=== PATIENT | male | born 1950 | race Asian ===

== ENCOUNTER 2021-09-29 18:08 | Inpatient (IN) | payer OTHER, MEDICAID ==
[~2021-09-29] VITALS: Ht 170.2 cm; Wt 64.5 kg
[2021-09-29 19:43] LABS: Albumin 2.4 g/dL (3.4-5.0); Calcium 8.5 mg/dL (8.5-10.1); Potassium 3.5 mmol/L (3.5-5.1)
[2021-09-29 19:45] LABS: BUN/Creatinine Ratio 15.7
[2021-09-29 19:51] LABS: Hematocrit 38.3 % (41.0-53.0); Hemoglobin 12.4 g/dL (13.5-17.5); Mean Corpuscular Hemoglobin 28.9 pg (28.0-32.0); Mean Corpuscular Hgb Conc. 32.3 g/dL (32.0-36.0); Mean Corpuscular Volume 89.3 fL (80.0-100.0); Red Blood Cells 4.29 10^6/uL (4.5-5.90); Red Cell Distribution Width 14.4 % (11.8-14.3); White Blood Cell 3.4 10^3/uL (4.4-10.8)
[2021-09-29 19:52] LABS: Bilirubin, Total 0.9 mg/dL (0.2-1.0); Total Protein 6.9 g/dL (6.4-8.2)
[2021-09-29 20:06] LABS: Basophils % (manual) 0 (0.0-2.0); Blast Cells 0; Eosinophils % (manual) 0 (0-7); Metamyelocytes % 0; Monocytes % (manual) 0 (0-12); Myelocytes % 0; Promyelocytes % 0
[2021-09-29 20:20] LABS: Band Neutrophils % (manual) 3; Lymphocytes % (manual) 10 (10.0-50.0)
[2021-09-29 20:21] LABS: Reactive Lymphocytes 4
[2021-09-29] MEDS ORDERED: SODIUM CHLORIDE 0.9% 1,000 ML IV ONE (23:00)
[2021-09-29 23:14] LABS: Urine Bacteria FEW /hpf (None Seen); Urine Blood TRACE /uL (Negative); Urine Hyaline Cast MOD /lpf (0 - 2); Urine Mucus FEW (None Seen); Urine Specific Gravity 1.021 (1.001-1.035); Urine WBC 4 /hpf (0 - 3)
[2021-09-30] VITALS (8 sets, daily range): BP systolic 111–139; BP diastolic 71–87
[2021-09-30] MEDS ORDERED: ACETAMINOPHEN 325 MG TAB PO PRN (03:45)
[2021-09-30] MEDS ORDERED: DOCUSATE SOD 100 MG CAP PO PRN (03:45)
[2021-09-30] MEDS ORDERED: HYDROcodone-ACET 5/325MG TAB PO PRN (03:45)
[2021-09-30] MEDS ORDERED: NITROGLYCERIN 0.4 MG SL TAB SL PRN (04:15)
[2021-09-30] MEDS ORDERED: MORPHINE SULFATE INJ 2 MG/ml SYRG IV PRN (04:15)
[2021-09-30] MEDS: SODIUM CHLOR 0.9% PF (SALINE LOCK) 10ML VIAL/SYR IV SCH ×3 (06:02→21:40)
[2021-09-30] MEDS: ONDANSETRON HCL 4 MG/2 ML VIAL IV PRN (09:01)
[2021-09-30] MEDS: MORPHINE SULFATE INJ 2 MG/ml SYRG IV PRN ×2 (09:03→22:54)
[2021-09-30 09:13] LABS: Mean Corpuscular Hgb Conc. 33.2 g/dL (32.0-36.0); White Blood Cell 2.8 10^3/uL (4.4-10.8)
[2021-09-30 09:15] LABS: Hematocrit 33.7 % (41.0-53.0); Hemoglobin 11.2 g/dL (13.5-17.5); Mean Corpuscular Hemoglobin 29.5 pg (28.0-32.0); Mean Corpuscular Volume 88.9 fL (80.0-100.0); Red Blood Cells 3.79 10^6/uL (4.5-5.90); Red Cell Distribution Width 14.2 % (11.8-14.3)
[2021-09-30 09:29] LABS: Albumin 1.7 g/dL (3.4-5.0); Potassium 3.6 mmol/L (3.5-5.1)
[2021-09-30 09:33] LABS: BUN/Creatinine Ratio 20.9; Bilirubin, Total 0.9 mg/dL (0.2-1.0); Total Protein 5.5 g/dL (6.4-8.2)
[2021-09-30 09:38] LABS: Band Neutrophils % (manual) 0; Basophils % (manual) 0 (0.0-2.0); Blast Cells 0; Metamyelocytes % 0; Myelocytes % 0; Promyelocytes % 0; Reactive Lymphocytes 0
[2021-09-30] MEDS: ZINC SULFATE 220mg CAP or TAB PO SCH (10:00)
[2021-09-30] MEDS: MULTIPLE VITAMIN TAB PO SCH (10:00)
[2021-09-30] MEDS: ASCORBIC ACID 500 MG TAB PO SCH ×2 (10:00→21:40)
[2021-09-30 11:30] LABS: Eosinophils % (manual) 2 (0-7); Lymphocytes % (manual) 12 (10.0-50.0); Monocytes % (manual) 13 (0-12)
[2021-09-30] MEDS: FAMOTIDINE (10MG/ML) 2ML VL IV SCH (13:20)
[2021-09-30] MEDS: methylPREDNISolone SOD SUCC 125 MG/2 ML VL IV SCH ×2 (13:21→21:40)
[2021-09-30] MEDS ORDERED: OYST500T48 OR (23:36)
[2021-09-30] MEDS ORDERED: DICY20TA PO (23:36)
[2021-09-30] MEDS ORDERED: FINA5TAB4 PO (23:36)
[2021-09-30] MEDS ORDERED: ACYC1CAP23 PO (23:36)
[2021-09-30] MEDS ORDERED: DOCU100T15 PO (23:36)
[2021-09-30] MEDS ORDERED: CHOL20TA PO (23:36)
[2021-09-30] MEDS ORDERED: SIME1CAP7 PO (23:36)
[2021-09-30] MEDS ORDERED: ONDA-144 PO (23:36)
[2021-09-30] MEDS ORDERED: IBAN1TAB3 PO (23:36)
[2021-10-01] VITALS (8 sets, daily range): BP systolic 102–126; BP diastolic 68–82
[2021-10-01] MEDS: methylPREDNISolone SOD SUCC 125 MG/2 ML VL IV SCH ×3 (05:26→21:33)
[2021-10-01] MEDS: SODIUM CHLOR 0.9% PF (SALINE LOCK) 10ML VIAL/SYR IV SCH ×3 (05:26→21:34)
[2021-10-01 08:41] LABS: Basophils # (auto) 0 10 ^3/uL (0-0.2); Eosinophils # (auto) 0 10 ^3/uL (0-0.8); Lymphocytes # (auto) 0.3 10 ^3/uL (0.4-5.4); Monocytes # (auto) 0.2 10 ^3/uL (0-1.3); White Blood Cell 3.5 10^3/uL (4.4-10.8)
[2021-10-01 08:43] LABS: Basophils % (auto) 0.2 % (0.0-2.0); Hemoglobin 12.2 g/dL (13.5-17.5); Lymphocytes % (auto) 7.9 % (10.0-50.0); Mean Corpuscular Hemoglobin 29.4 pg (28.0-32.0); Mean Corpuscular Volume 88.9 fL (80.0-100.0); Monocytes % (auto) 4.5 % (0.0-12.0); Neutrophils % (auto) 87.4 % (37.0-80.0); Nucleated Red Blood Cells % 0.2 %; Red Blood Cells 4.16 10^6/uL (4.5-5.90); Red Cell Distribution Width 13.9 % (11.8-14.3)
[2021-10-01 08:53] LABS: Calcium 8.5 mg/dL (8.5-10.1); Potassium 3.9 mmol/L (3.5-5.1)
[2021-10-01 09:06] LABS: BUN/Creatinine Ratio 25.5; Bilirubin, Total 0.8 mg/dL (0.2-1.0); Total Protein 6.4 g/dL (6.4-8.2)
[2021-10-01] MEDS: ZINC SULFATE 220mg CAP or TAB PO SCH (10:25)
[2021-10-01] MEDS: MULTIPLE VITAMIN TAB PO SCH (10:25)
[2021-10-01] MEDS: FAMOTIDINE (10MG/ML) 2ML VL IV SCH (10:25)
[2021-10-01] MEDS: ASCORBIC ACID 500 MG TAB PO SCH ×2 (10:25→21:33)
[2021-10-02 05:00] VITALS: BP 120/80
[2021-10-02] MEDS: methylPREDNISolone SOD SUCC 125 MG/2 ML VL IV SCH ×3 (05:45→21:48)
[2021-10-02] MEDS: SODIUM CHLOR 0.9% PF (SALINE LOCK) 10ML VIAL/SYR IV SCH ×3 (05:45→21:47)
[2021-10-02 07:00] LABS: Basophils # (auto) 0 10 ^3/uL (0-0.2); Eosinophils # (auto) 0 10 ^3/uL (0-0.8); Hemoglobin 12.1 g/dL (13.5-17.5); Monocytes # (auto) 0.2 10 ^3/uL (0-1.3); Neutrophils # (auto) 4.5 10 ^3/uL (1.6-8.6); Nucleated Red Blood Cells % 0.1 %; White Blood Cell 5.1 10^3/uL (4.4-10.8)
[2021-10-02 07:03] LABS: Basophils % (auto) 0.2 % (0.0-2.0); Hematocrit 35.6 % (41.0-53.0); Lymphocytes # (auto) 0.4 10 ^3/uL (0.4-5.4); Lymphocytes % (auto) 7.2 % (10.0-50.0); Mean Corpuscular Hemoglobin 29.8 pg (28.0-32.0); Mean Corpuscular Hgb Conc. 33.8 g/dL (32.0-36.0); Mean Corpuscular Volume 88.3 fL (80.0-100.0); Monocytes % (auto) 3.7 % (0.0-12.0); Neutrophils % (auto) 88.9 % (37.0-80.0); Red Blood Cells 4.04 10^6/uL (4.5-5.90); Red Cell Distribution Width 14.7 % (11.8-14.3)
[2021-10-02 09:00] VITALS: BP 111/77
[2021-10-02] MEDS: MULTIPLE VITAMIN TAB PO SCH (09:34)
[2021-10-02] MEDS: ASCORBIC ACID 500 MG TAB PO SCH ×2 (09:34→21:48)
[2021-10-02] MEDS: FAMOTIDINE (10MG/ML) 2ML VL IV SCH (09:34)
[2021-10-02] MEDS: ZINC SULFATE 220mg CAP or TAB PO SCH (09:34)
[2021-10-02] MEDS ORDERED: GASTROGRAFIN 120 ML SOL ONE (09:37)
[2021-10-02 13:00] VITALS: BP 106/71
[2021-10-02 17:00] VITALS: BP 108/68
[2021-10-02 22:00] VITALS: BP 100/62
[2021-10-03 05:00] VITALS: BP 113/82
[2021-10-03] MEDS: SODIUM CHLOR 0.9% PF (SALINE LOCK) 10ML VIAL/SYR IV SCH ×3 (05:24→21:21)
[2021-10-03] MEDS: methylPREDNISolone SOD SUCC 125 MG/2 ML VL IV SCH ×3 (05:25→21:22)
[2021-10-03 06:20] LABS: Basophils # (auto) 0 10 ^3/uL (0-0.2); Basophils % (auto) 0.1 % (0.0-2.0); Eosinophils # (auto) 0 10 ^3/uL (0-0.8); Lymphocytes # (auto) 0.2 10 ^3/uL (0.4-5.4); Mean Corpuscular Volume 86.9 fL (80.0-100.0); Monocytes # (auto) 0.2 10 ^3/uL (0-1.3); White Blood Cell 4.2 10^3/uL (4.4-10.8)
[2021-10-03 06:22] LABS: Hemoglobin 10.7 g/dL (13.5-17.5); Mean Corpuscular Hemoglobin 29.1 pg (28.0-32.0); Mean Corpuscular Hgb Conc. 33.4 g/dL (32.0-36.0); Monocytes % (auto) 5.3 % (0.0-12.0); Neutrophils # (auto) 3.7 10 ^3/uL (1.6-8.6); Neutrophils % (auto) 89.6 % (37.0-80.0); Nucleated Red Blood Cells % 0.1 %; Red Blood Cells 3.68 10^6/uL (4.5-5.90); Red Cell Distribution Width 14.2 % (11.8-14.3)
[2021-10-03 06:31] LABS: BUN/Creatinine Ratio 43.2; Calcium 7.9 mg/dL (8.5-10.1); Potassium 3.9 mmol/L (3.5-5.1)
[2021-10-03 08:00] VITALS: BP 103/74
[2021-10-03] MEDS: FAMOTIDINE (10MG/ML) 2ML VL IV SCH (10:01)
[2021-10-03] MEDS: ZINC SULFATE 220mg CAP or TAB PO SCH (10:02)
[2021-10-03] MEDS: MULTIPLE VITAMIN TAB PO SCH (10:02)
[2021-10-03] MEDS: ASCORBIC ACID 500 MG TAB PO SCH ×2 (10:02→22:00)
[2021-10-03] MEDS ORDERED: PRED20TA2 PO (11:26)
[2021-10-03 12:00] VITALS: BP 103/68
[2021-10-03 16:00] VITALS: BP 114/70
[2021-10-03] MEDS: SODIUM CHLORIDE 0.9% 1,000 ML IV SCH (16:49)
[2021-10-03 22:00] VITALS: BP 122/76
[2021-10-04] MEDS: SODIUM CHLORIDE 0.9% 1,000 ML IV SCH ×3 (01:30→21:22)
[2021-10-04 05:00] VITALS: BP_SYST 124; BP_SYST 14; BP_DIAS 70
[2021-10-04] MEDS: SODIUM CHLOR 0.9% PF (SALINE LOCK) 10ML VIAL/SYR IV SCH ×3 (05:34→21:22)
[2021-10-04] MEDS: methylPREDNISolone SOD SUCC 125 MG/2 ML VL IV SCH ×2 (05:34→14:51)
[2021-10-04 06:02] LABS: Basophils # (auto) 0 10 ^3/uL (0-0.2); Eosinophils # (auto) 0 10 ^3/uL (0-0.8); Hemoglobin 11.5 g/dL (13.5-17.5); Lymphocytes # (auto) 0.2 10 ^3/uL (0.4-5.4); Monocytes # (auto) 0.1 10 ^3/uL (0-1.3); Nucleated Red Blood Cells % 0.1 %; Red Cell Distribution Width 14.5 % (11.8-14.3); White Blood Cell 4.2 10^3/uL (4.4-10.8)
[2021-10-04 06:07] LABS: Basophils % (auto) 0.3 % (0.0-2.0); Hematocrit 34.8 % (41.0-53.0); Lymphocytes % (auto) 5.4 % (10.0-50.0); Mean Corpuscular Hemoglobin 28.9 pg (28.0-32.0); Mean Corpuscular Volume 87.7 fL (80.0-100.0); Monocytes % (auto) 3.4 % (0.0-12.0); Neutrophils # (auto) 3.8 10 ^3/uL (1.6-8.6); Neutrophils % (auto) 90.9 % (37.0-80.0); Red Blood Cells 3.97 10^6/uL (4.5-5.90)
[2021-10-04 06:08] LABS: Potassium 4.2 mmol/L (3.5-5.1)
[2021-10-04 09:00] VITALS: BP 118/73
[2021-10-04 11:07] LABS: INR 1.32 (0.9-1.15); Partial Thromboplastin Time 28.1 sec (24.6-33.4)
[2021-10-04] MEDS: MULTIPLE VITAMIN TAB PO SCH (11:12)
[2021-10-04] MEDS: ASCORBIC ACID 500 MG TAB PO SCH (11:13)
[2021-10-04] MEDS: ZINC SULFATE 220mg CAP or TAB PO SCH (11:13)
[2021-10-04] MEDS: FAMOTIDINE (10MG/ML) 2ML VL IV SCH (12:30)
[2021-10-04 13:00] VITALS: BP 108/71
[2021-10-04] MEDS ORDERED: cefTRIAXone 1GM/50ML D5W 50 ML IV ONE (13:30)
[2021-10-04 17:00] VITALS: BP 190/97
[2021-10-04 22:00] VITALS: BP 108/73
[2021-10-05] VITALS (10 sets, daily range): BP systolic 120–137; BP diastolic 72–89
[2021-10-05] MEDS: SODIUM CHLORIDE 0.9% 1,000 ML IV SCH ×3 (02:52→22:50)
[2021-10-05 05:23] LABS: Basophils # (auto) 0 10 ^3/uL (0-0.2); Eosinophils # (auto) 0 10 ^3/uL (0-0.8); Lymphocytes # (auto) 0.1 10 ^3/uL (0.4-5.4)
[2021-10-05] MEDS: SODIUM CHLOR 0.9% PF (SALINE LOCK) 10ML VIAL/SYR IV SCH ×3 (05:25→22:50)
[2021-10-05 05:27] LABS: Basophils % (auto) 0.6 % (0.0-2.0); Hematocrit 32.4 % (41.0-53.0); Hemoglobin 10.6 g/dL (13.5-17.5); Lymphocytes % (auto) 3.1 % (10.0-50.0); Mean Corpuscular Hemoglobin 28.9 pg (28.0-32.0); Mean Corpuscular Hgb Conc. 32.8 g/dL (32.0-36.0); Mean Corpuscular Volume 87.9 fL (80.0-100.0); Monocytes # (auto) 0.2 10 ^3/uL (0-1.3); Monocytes % (auto) 5.1 % (0.0-12.0); Neutrophils # (auto) 3.9 10 ^3/uL (1.6-8.6); Neutrophils % (auto) 91.2 % (37.0-80.0); Nucleated Red Blood Cells % 0.2 %; Red Blood Cells 3.68 10^6/uL (4.5-5.90); Red Cell Distribution Width 14.8 % (11.8-14.3); White Blood Cell 4.3 10^3/uL (4.4-10.8)
[2021-10-05 05:44] LABS: Calcium 7.9 mg/dL (8.5-10.1); Potassium 3.9 mmol/L (3.5-5.1)
[2021-10-05 06:05] LABS: BUN/Creatinine Ratio 47.8
[2021-10-05] MEDS ORDERED: LORazepam 2MG/ML-1ML VIAL IV PRN (09:30)
[2021-10-05] MEDS: MULTIPLE VITAMIN TAB PO SCH (10:00)
[2021-10-05] MEDS ORDERED: methylPREDNISolone SOD SUCC 125 MG/2 ML VL IV SCH (10:00)
[2021-10-05] MEDS: FAMOTIDINE (10MG/ML) 2ML VL IV SCH (10:46)
[2021-10-05] MEDS: cefTRIAXone 1GM/50ML D5W 50 ML IV SCH (10:47)
[2021-10-05] MEDS: methylPREDNISolone SOD SUCC 125 MG/2 ML VL IV SCH ×3 (11:20→22:50)
[2021-10-05 20:57] LABS: Cholesterol 67 mg/dL (< 200)
[2021-10-05 21:00] LABS: HDL Cholesterol 10 mg/dL (40-59); LDL Cholesterol 42 mg/dL (< 100); Triglycerides 110 mg/dL (< 150)
[2021-10-05] MEDS: ATORVASTATIN 20 MG TAB PO SCH (22:53)
[2021-10-06 05:00] VITALS: BP 145/73
[2021-10-06] MEDS: SODIUM CHLOR 0.9% PF (SALINE LOCK) 10ML VIAL/SYR IV SCH ×3 (05:40→23:08)
[2021-10-06] MEDS: methylPREDNISolone SOD SUCC 125 MG/2 ML VL IV SCH ×3 (05:40→23:09)
[2021-10-06 05:41] LABS: Basophils # (auto) 0 10 ^3/uL (0-0.2); Eosinophils # (auto) 0 10 ^3/uL (0-0.8); Hemoglobin 9.4 g/dL (13.5-17.5); Lymphocytes # (auto) 0.1 10 ^3/uL (0.4-5.4)
[2021-10-06 05:47] LABS: Basophils % (auto) 0.4 % (0.0-2.0); Hematocrit 27.6 % (41.0-53.0); Lymphocytes % (auto) 3.2 % (10.0-50.0); Mean Corpuscular Hemoglobin 29.6 pg (28.0-32.0); Mean Corpuscular Hgb Conc. 33.9 g/dL (32.0-36.0); Mean Corpuscular Volume 87.2 fL (80.0-100.0); Monocytes # (auto) 0.2 10 ^3/uL (0-1.3); Monocytes % (auto) 4.3 % (0.0-12.0); Neutrophils # (auto) 3.9 10 ^3/uL (1.6-8.6); Neutrophils % (auto) 92.1 % (37.0-80.0); Nucleated Red Blood Cells % 0.1 %; Red Blood Cells 3.17 10^6/uL (4.5-5.90); White Blood Cell 4.2 10^3/uL (4.4-10.8)
[2021-10-06 05:50] LABS: BUN/Creatinine Ratio 47.1; Calcium 7.5 mg/dL (8.5-10.1); Potassium 4.3 mmol/L (3.5-5.1)
[2021-10-06 07:06] LABS: Immunoglobulin G, Serum 693 mg/dL (603-1613)
[2021-10-06] MEDS ORDERED: HYDROmorphone HCL 2 MG/ML VL/or syr IV ONE (08:15)
[2021-10-06 08:51] VITALS: BP 129/68
[2021-10-06] MEDS: MULTIPLE VITAMIN TAB PO SCH (11:29)
[2021-10-06] MEDS: FAMOTIDINE (10MG/ML) 2ML VL IV SCH (11:29)
[2021-10-06] MEDS: cefTRIAXone 1GM/50ML D5W 50 ML IV SCH (11:30)
[2021-10-06] MEDS: ASPirin-EC 81 mg tab PO SCH (11:30)
[2021-10-06 12:36] VITALS: BP 123/88
[2021-10-06] MEDS: ONDANSETRON HCL 4 MG/2 ML VIAL IV PRN (13:24)
[2021-10-06 16:22] VITALS: BP 141/75
[2021-10-06] MEDS: SODIUM CHLORIDE 0.9% 1,000 ML IV SCH (17:21)
[2021-10-06 22:03] VITALS: BP 114/72
[2021-10-06] MEDS: ATORVASTATIN 20 MG TAB PO SCH (23:09)
[2021-10-07 04:32] VITALS: BP 140/80
[2021-10-07] MEDS: SODIUM CHLOR 0.9% PF (SALINE LOCK) 10ML VIAL/SYR IV SCH ×3 (05:54→22:12)
[2021-10-07] MEDS: methylPREDNISolone SOD SUCC 125 MG/2 ML VL IV SCH (05:54)
[2021-10-07 06:30] LABS: Basophils # (auto) 0 10 ^3/uL (0-0.2); Basophils % (auto) 0.1 % (0.0-2.0); Eosinophils # (auto) 0 10 ^3/uL (0-0.8); Hemoglobin 8.9 g/dL (13.5-17.5); Monocytes # (auto) 0.2 10 ^3/uL (0-1.3); Nucleated Red Blood Cells % 0.2 %
[2021-10-07 06:33] LABS: Hematocrit 26.5 % (41.0-53.0); Lymphocytes # (auto) 0.1 10 ^3/uL (0.4-5.4); Lymphocytes % (auto) 2.7 % (10.0-50.0); Mean Corpuscular Hemoglobin 28.9 pg (28.0-32.0); Mean Corpuscular Hgb Conc. 33.5 g/dL (32.0-36.0); Mean Corpuscular Volume 86.3 fL (80.0-100.0); Monocytes % (auto) 3.9 % (0.0-12.0); Neutrophils # (auto) 3.8 10 ^3/uL (1.6-8.6); Neutrophils % (auto) 93.3 % (37.0-80.0); Red Blood Cells 3.07 10^6/uL (4.5-5.90); Red Cell Distribution Width 15.7 % (11.8-14.3); White Blood Cell 4.1 10^3/uL (4.4-10.8)
[2021-10-07 06:49] LABS: Potassium 4.3 mmol/L (3.5-5.1)
[2021-10-07 06:55] LABS: BUN/Creatinine Ratio 44.5; Calcium 7.5 mg/dL (8.5-10.1)
[2021-10-07] MEDS: cefTRIAXone 1GM/50ML D5W 50 ML IV SCH (08:48)
[2021-10-07] MEDS: FAMOTIDINE (10MG/ML) 2ML VL IV SCH (08:48)
[2021-10-07] MEDS: MULTIPLE VITAMIN TAB PO SCH (08:49)
[2021-10-07] MEDS: ASPirin-EC 81 mg tab PO SCH (08:49)
[2021-10-07 09:17] VITALS: BP 110/78
[2021-10-07] MEDS ORDERED: FUROSEMIDE 40 MG/4 ML VIAL IV ONE (11:45)
[2021-10-07] MEDS ORDERED: PANTOPRAZOLE 40 MG/10 ML VIAL INJ IV ONE (11:45)
[2021-10-07 13:00] VITALS: BP 122/71
[2021-10-07] MEDS: Ensure Enlive Strawberry 8oz Bottle PO SCH ×2 (14:40→18:02)
[2021-10-07] MEDS: predniSONE 20 MG TAB PO SCH ×2 (14:41→22:11)
[2021-10-07 17:00] VITALS: BP 129/71
[2021-10-07] MEDS: FUROSEMIDE 40 MG/4 ML VIAL IV SCH (17:49)
[2021-10-07] MEDS: PIPERACILLIN-TAZOB 2.25GM 50 ML IV SCH (17:51)
[2021-10-07 20:00] VITALS: BP 121/72
[2021-10-07 21:00] LABS: Urine WBC None Seen /hpf (0 - 3)
[2021-10-07 21:15] LABS: Urine Amorphous Crystal FEW /hpf (None Seen); Urine Bacteria FEW /hpf (None Seen); Urine Blood 3+ /uL (Negative); Urine Hyaline Cast FEW /lpf (0 - 2)
[2021-10-07 21:50] LABS: Protein, Urine 30.2 mg/dL (0.0-11.9)
[2021-10-07 22:00] VITALS: BP 121/72
[2021-10-07] MEDS: PANTOPRAZOLE 40 MG/10 ML VIAL INJ IV SCH (22:11)
[2021-10-07] MEDS: ATORVASTATIN 20 MG TAB PO SCH (22:12)
[2021-10-07 23:55] LABS: Albumin 1.2 g/dL (3.4-5.0); Bilirubin, Direct 13.7 mg/dL (0-0.2)
[2021-10-07 23:58] LABS: Bilirubin, Total 15.9 mg/dL (0.2-1.0); Total Protein 4.3 g/dL (6.4-8.2)
[2021-10-08] VITALS (46 sets, daily range): BP systolic 81–137; BP diastolic 51–83
[2021-10-08] MEDS: PIPERACILLIN-TAZOB 2.25GM 50 ML IV SCH ×4 (00:48→18:00)
[2021-10-08] MEDS: SODIUM CHLOR 0.9% PF (SALINE LOCK) 10ML VIAL/SYR IV SCH ×3 (05:39→20:00)
[2021-10-08] MEDS: predniSONE 20 MG TAB PO SCH ×3 (05:39→22:00)
[2021-10-08] MEDS: FUROSEMIDE 40 MG/4 ML VIAL IV SCH ×2 (05:39→18:22)
[2021-10-08 06:56] LABS: Basophils # (auto) 0 10 ^3/uL (0-0.2); Basophils % (auto) 0.1 % (0.0-2.0); Eosinophils # (auto) 0 10 ^3/uL (0-0.8); Lymphocytes # (auto) 0.1 10 ^3/uL (0.4-5.4); Mean Corpuscular Volume 86.7 fL (80.0-100.0); Monocytes # (auto) 0.2 10 ^3/uL (0-1.3); Nucleated Red Blood Cells % 0.3 %; White Blood Cell 5.7 10^3/uL (4.4-10.8)
[2021-10-08 06:58] LABS: Hematocrit 24.2 % (41.0-53.0); Hemoglobin 8.1 g/dL (13.5-17.5); Lymphocytes % (auto) 1.9 % (10.0-50.0); Mean Corpuscular Hgb Conc. 33.5 g/dL (32.0-36.0); Neutrophils # (auto) 5.3 10 ^3/uL (1.6-8.6); Red Cell Distribution Width 15.3 % (11.8-14.3)
[2021-10-08] MEDS: Ensure Enlive Strawberry 8oz Bottle PO SCH ×3 (08:00→17:57)
[2021-10-08 08:17] LABS: Albumin 1.2 g/dL (3.4-5.0); Calcium 7.2 mg/dL (8.5-10.1); Potassium 4.1 mmol/L (3.5-5.1)
[2021-10-08 08:19] LABS: BUN/Creatinine Ratio 39.2; Bilirubin, Total 17.1 mg/dL (0.2-1.0); Total Protein 4.2 g/dL (6.4-8.2)
[2021-10-08] MEDS ORDERED: SODIUM CHL 0.9% 1000 ML BAG XX ONE (09:45)
[2021-10-08] MEDS: PANTOPRAZOLE 40 MG/10 ML VIAL INJ IV SCH ×2 (10:00→23:30)
[2021-10-08] MEDS: ASPirin-EC 81 mg tab PO SCH (10:00)
[2021-10-08] MEDS: FAMOTIDINE (10MG/ML) 2ML VL IV SCH (10:00)
[2021-10-08] MEDS: MULTIPLE VITAMIN TAB PO SCH (10:00)
[2021-10-08 10:03] LABS: INR 1.36 (0.9-1.15)
[2021-10-08 15:16] LABS: Basophils # (auto) 0.1 10 ^3/uL (0-0.2); Eosinophils # (auto) 0 10 ^3/uL (0-0.8); Lymphocytes # (auto) 0.1 10 ^3/uL (0.4-5.4); Mean Corpuscular Hgb Conc. 33.4 g/dL (32.0-36.0); Monocytes # (auto) 0.2 10 ^3/uL (0-1.3); Red Cell Distribution Width 15.7 % (11.8-14.3)
[2021-10-08 15:18] LABS: Basophils % (auto) 1.1 % (0.0-2.0); Hematocrit 21.8 % (41.0-53.0); Hemoglobin 7.3 g/dL (13.5-17.5); Lymphocytes % (auto) 1.9 % (10.0-50.0); Monocytes % (auto) 3.6 % (0.0-12.0); Neutrophils # (auto) 6.2 10 ^3/uL (1.6-8.6); Neutrophils % (auto) 93.4 % (37.0-80.0); Nucleated Red Blood Cells % 0.5 %; White Blood Cell 6.7 10^3/uL (4.4-10.8)
[2021-10-08] MEDS ORDERED: HEPARIN 1,000 UNITS/ml 1ML VIAL IV ONE (16:15)
[2021-10-08] MEDS: ONDANSETRON HCL 4 MG/2 ML VIAL IV PRN (17:35)
[2021-10-08] MEDS: NOREPINEPHRINE 8 MG/250ML KIT 250 ML IV SCH (18:00)
[2021-10-08] MEDS ORDERED: HEPARIN 1,000 UNITS/ml 1ML VIAL ONE (23:50)
[2021-10-09] VITALS (44 sets, daily range): BP systolic 87–126; BP diastolic 52–73
[2021-10-09 04:02] LABS: Basophils # (auto) 0 10 ^3/uL (0-0.2); Basophils % (auto) 0.3 % (0.0-2.0); Eosinophils # (auto) 0 10 ^3/uL (0-0.8); Eosinophils % (auto) 0.1 % (0.0-7.0); Lymphocytes # (auto) 0.1 10 ^3/uL (0.4-5.4); Monocytes # (auto) 0.2 10 ^3/uL (0-1.3)
[2021-10-09 04:04] LABS: Hematocrit 18.1 % (41.0-53.0); Lymphocytes % (auto) 3.1 % (10.0-50.0); Mean Corpuscular Hemoglobin 30.2 pg (28.0-32.0); Mean Corpuscular Hgb Conc. 34.7 g/dL (32.0-36.0); Mean Corpuscular Volume 87.1 fL (80.0-100.0); Monocytes % (auto) 4.1 % (0.0-12.0); Neutrophils % (auto) 92.4 % (37.0-80.0); Nucleated Red Blood Cells % 0.2 %; Red Blood Cells 2.07 10^6/uL (4.5-5.90); Red Cell Distribution Width 15.4 % (11.8-14.3); White Blood Cell 4.3 10^3/uL (4.4-10.8)
[2021-10-09 04:15] LABS: Albumin 1.4 g/dL (3.4-5.0); Calcium 6.8 mg/dL (8.5-10.1); Hemoglobin 6.3 g/dL (13.5-17.5); Potassium 3.7 mmol/L (3.5-5.1)
[2021-10-09 04:18] LABS: BUN/Creatinine Ratio 31.9
[2021-10-09 04:28] LABS: Bilirubin, Total 18.8 mg/dL (0.2-1.0); Total Protein 4.4 g/dL (6.4-8.2)
[2021-10-09] MEDS: predniSONE 20 MG TAB PO SCH ×3 (06:00→22:40)
[2021-10-09] MEDS: PIPERACILLIN-TAZOB 2.25GM 50 ML IV SCH ×4 (06:00→17:13)
[2021-10-09] MEDS: SODIUM CHLOR 0.9% PF (SALINE LOCK) 10ML VIAL/SYR IV SCH ×3 (06:00→21:36)
[2021-10-09] MEDS: PANTOPRAZOLE 40 MG/10 ML VIAL INJ IV SCH ×2 (09:12→22:39)
[2021-10-09] MEDS: MULTIPLE VITAMIN TAB PO SCH (09:12)
[2021-10-09 10:13] LABS: Hepatitis B Surface Antibody Negative (Negative)
[2021-10-09] MEDS: Ensure Enlive Strawberry 8oz Bottle PO SCH ×3 (10:33→17:14)
[2021-10-09 10:41] LABS: Hepatitis A Total Antibody Positive (Negative)
[2021-10-09 13:33] LABS: Hepatitis C Antibody Negative (Negative)
[2021-10-09 13:35] LABS: Hepatitis A Ab IgM Negative; Hepatitis B Core IgM Negative; Hepatitis C Antibody Negative (Negative)
[2021-10-09] MEDS: ALBUMIN 25% 100 ML IV SCH ×2 (13:35→14:18)
[2021-10-09 14:44] LABS: % Iron Saturation 50.5 % (20-55)
[2021-10-09] MEDS: NOREPINEPHRINE 8 MG/250ML KIT 250 ML IV SCH (17:14)
[2021-10-09] MEDS ORDERED: EPOETIN ALFA-EPBX 10,000 UNIT/1ML VIAL SC ONE (21:00)
[2021-10-09] MEDS ORDERED: URSODIOL 300 MG CAP PO SCH (22:00)
[2021-10-10] VITALS (11 sets, daily range): BP systolic 89–112; BP diastolic 55–64
[2021-10-10 03:51] LABS: Basophils # (auto) 0 10 ^3/uL (0-0.2); Eosinophils # (auto) 0 10 ^3/uL (0-0.8); Lymphocytes # (auto) 0.2 10 ^3/uL (0.4-5.4); Mean Corpuscular Hemoglobin 29.5 pg (28.0-32.0); Mean Corpuscular Hgb Conc. 34.2 g/dL (32.0-36.0); Mean Corpuscular Volume 86.2 fL (80.0-100.0); Monocytes # (auto) 0.3 10 ^3/uL (0-1.3); Neutrophils # (auto) 5.3 10 ^3/uL (1.6-8.6); Nucleated Red Blood Cells % 0.2 %; White Blood Cell 5.8 10^3/uL (4.4-10.8)
[2021-10-10 03:52] LABS: Basophils % (auto) 0.2 % (0.0-2.0); Hematocrit 21.8 % (41.0-53.0); Hemoglobin 7.4 g/dL (13.5-17.5); Lymphocytes % (auto) 3.7 % (10.0-50.0); Monocytes % (auto) 4.9 % (0.0-12.0); Neutrophils % (auto) 91.2 % (37.0-80.0); Red Blood Cells 2.52 10^6/uL (4.5-5.90); Red Cell Distribution Width 15.1 % (11.8-14.3)
[2021-10-10 04:03] LABS: Albumin 1.7 g/dL (3.4-5.0); Potassium 4.4 mmol/L (3.5-5.1)
[2021-10-10 04:15] LABS: Bilirubin, Total 21.9 mg/dL (0.2-1.0); Total Protein 4.3 g/dL (6.4-8.2)
[2021-10-10] MEDS: PIPERACILLIN-TAZOB 2.25GM 50 ML IV SCH (05:56)
[2021-10-10] MEDS: SODIUM CHLOR 0.9% PF (SALINE LOCK) 10ML VIAL/SYR IV SCH (06:01)
[2021-10-10] MEDS: predniSONE 20 MG TAB PO SCH (06:01)
== END 2021-10-10 10:15 | disposition left against medical advice (07) | DRG 840 ==
LOC: ER 18:08 → OVERFLOW 09-30 04:09 → WEST WING 09-30 05:25 → TELE-WESTW 10-05 23:28 → ICU WEST 10-08 16:36
PROVIDERS: ADMIT Nurse Practitioner Family; ATTEND Internal Medicine Pulmonary Disease
PROC: 30233R1 Transfusion of Nonautologous Platelets into Peripheral Vein, Percutaneous Approach (ICD-10-PCS; 2021-09-30)
PROC: 07DR3ZX Extraction of Iliac Bone Marrow, Percutaneous Approach, Diagnostic (ICD-10-PCS; principal; 2021-10-06)
PROC: 02HV33Z Insertion of Infusion Device into Superior Vena Cava, Percutaneous Approach (ICD-10-PCS; 2021-10-08)
PROC: B548ZZA Ultrasonography of Superior Vena Cava, Guidance (ICD-10-PCS; 2021-10-08)
PROC: 30233K1 Transfusion of Nonautologous Frozen Plasma into Peripheral Vein, Percutaneous Approach (ICD-10-PCS; 2021-10-08)
PROC: 30233N1 Transfusion of Nonautologous Red Blood Cells into Peripheral Vein, Percutaneous Approach (ICD-10-PCS; 2021-10-09)
PROC: 05H933Z Insertion of Infusion Device into Right Brachial Vein, Percutaneous Approach (ICD-10-PCS; 2021-10-09)
PROC: B54MZZA Ultrasonography of Right Upper Extremity Veins, Guidance (ICD-10-PCS; 2021-10-09)
DX: C90.00 Multiple myeloma not having achieved remission (principal); A41.9 Sepsis, unspecified organism; J96.01 Acute respiratory failure with hypoxia; K72.00 Acute and subacute hepatic failure without coma; N17.0 Acute kidney failure with tubular necrosis; D61.818 Other pancytopenia; I31.3 Pericardial effusion (noninflammatory); N39.0 Urinary tract infection, site not specified; J90 Pleural effusion, not elsewhere classified; J98.11 Atelectasis; Z94.81 Bone marrow transplant status; Z94.84 Stem cells transplant status; D62 Acute posthemorrhagic anemia; E88.09 Other disorders of plasma-protein metabolism, not elsewhere classified; Z20.822 Contact with and (suspected) exposure to COVID-19; I12.9 Hypertensive chronic kidney disease with stage 1 through stage 4 chronic kidney disease, or unspecified chronic kidney disease; Z53.29 Procedure and treatment not carried out because of patient's decision for other reasons; N18.31 Chronic kidney disease, stage 3a; E86.0 Dehydration; N40.0 Benign prostatic hyperplasia without lower urinary tract symptoms; Z79.82 Long term (current) use of aspirin; Z79.899 Other long term (current) drug therapy; Z90.49 Acquired absence of other specified parts of digestive tract; Z92.21 Personal history of antineoplastic chemotherapy; Z86.73 Personal history of transient ischemic attack (TIA), and cerebral infarction without residual deficits
CPT/HCPCS: 36415; 70551; 71045; 71250; 74176; 74250; 76705; 76775; 80048; 80053; 80061; 80074; 80076; 81001; 82247; 82570; 82784; 83010; 83540; 83550; 83615; 83735; 83880; 83883; 84155; 84156; 84165; 84300; 84484; 85007; 85025; 85027; 85610; 85730; 86334; 86335; 86704; 86706; 86708; 86803; 86850; 86900; 86901; 86920; 87040; 87081; 87086; 87340; 90935; 92610; 93005; 93306; 93886; 93970; 95819; 96360; 97163; C9113; G0378; J0696; J1642; J2405; J2543; J3490; P9047